=== PATIENT | female | born 1980 | race Caucasian/White ===

== ENCOUNTER 2019-01-30 11:37 | Emergency (ER) | payer MEDICARE, OTHER ==
[~2019-01-30] VITALS: Ht 152.4 cm; Wt 69.9 kg
--- OUTSIDE RECORDS SUMMARY | 2019-01-30 11:40 | XMS REPORT | Clinical Summary ---
Author Author [facility] Organization [place] [facility] Address Unknown Phone Unavailable Care Team Providers Care Statistical Developer Name Role Phone System, Provider Not In MD PCP Unavailable Allergies No Known Allergies Medications End Date Status Medication Sig Dispensed Refills Start Date Active lisinopril-hydrochlorothi Take 1 tablet 0 azide by mouth (PRINZIDE,ZESTORETIC) daily. 10-12.5 mg per tablet Active diclofenac submicronized Take 35 mg by 0 (ZORVOLEX) 35 mg capsule mouth 3 (three) times a day as needed. Active tiZANidine (ZANAFLEX) 4 Take 4 mg by 0 MG tablet mouth nightly. 09/13/2018 Discontinued acetaminophen-codeine Take 1 tablet 0 (TYLENOL WITH CODEINE #3) by mouth 300-30 mg per tablet every 6 (six) hours as needed for moderate pain. 10/13/2018 meloxicam (MOBIC) 15 mg Take 1 tablet 20 tablet 0 tablet (15 mg total) 9 by mouth daily as needed for mild pain or moderate pain for up to 30 days. 10/13/2018 methocarbamol (ROBAXIN) Take 1 tablet 20 tablet 0 500 MG tablet (500 mg 9 total) by mouth every 8 (eight) hours as needed for muscle spasms for up to 30 days. 09/16/2018 acetaminophen-codeine Take 1 tablet 10 tablet 0 (TYLENOL WITH CODEINE #3) by mouth 9 300-30 mg per tablet every 8 (eight) hours as needed for moderate pain for up to 3 days. Active Problems Not on file Encounters Care Team Description Date Type Specialty Supa Seaman MD RUQ abdominal pain (Primary Dx); Dehydration; Rib pain on right side 09/13/2018 Emergency Emergency Medicine after 01/29/2018 Social History Date Tobacco Use Types Packs/Day Years Used Current Every Day Smoker Cigarettes Smokeless Tobacco: Never Used Drinks/Week oz/Week Comments Alcohol Use ocass Yes Sex Assigned at Date Recorded Not on file Industry Job Start Date Occupation Not on file Not on file Not on file Travel End Travel History Travel Start No recent travel history available. Last Filed Vital Signs Reading Time Taken Comments Vital Sign 132/78 09/13/2018 2:43 PM CDT Blood Pressure 78 09/13/2018 2:43 PM CDT Pulse 36.8 C (98.2 F) 09/13/2018 2:43 PM CDT Temperature 18 09/13/2018 2:43 PM CDT Respiratory Rate 100% 09/13/2018 2:43 PM CDT Oxygen Saturation - - Inhaled Oxygen Concentration 67.6 kg (149 lb) 09/13/2018 9:45 AM CDT Weight 152.4 cm (5') 09/13/2018 9:45 AM CDT Height 29.1 09/13/2018 9:45 AM CDT Body Mass Index Plan of Treatment Health Maintenance Due Date Last Done Comments CERVICAL CANCER SCREENING 2002 INFLUENZA VACCINE 01/04/2019 Procedures Comments Procedure Name Priority Date/Time Associated Diagnosis XR RIBS 2 VW RIGHT STAT 09/13/2018 1:20 PM CDT XR CHEST 2 VW STAT 09/13/2018 1:20 PM CDT ESTIMATED GFR STAT 09/13/2018 11:59 AM CDT LIPASE LEVEL STAT 09/13/2018 11:59 AM CDT COMPREHENSIVE METABOLIC STAT 09/13/2018 PANEL 11:59 AM CDT HC COMPLETE BLD COUNT STAT 09/13/2018 W/AUTO DIFF 11:59 AM CDT US GALLBLADDER STAT 09/13/2018 11:44 AM CDT HCG QUALITATIVE, URINE STAT 09/13/2018 SCREEN 10:42 AM CDT URINALYSIS SCREEN AND STAT 09/13/2018 MICROSCOPY, WITH REFLEX 10:42 AM CDT TO CULTURE ECG 12-LEAD STAT 09/13/2018 10:36 AM CDT ECG ED PRELIMINARY Routine 09/13/2018 INTERPRETATION 10:36 AM CDT after 01/29/2018 Results * XR Ribs 2 Vw Right (09/13/2018 1:20 PM CDT) Specimen Narrative Performed At EXAMINATION:XR RIBS 2 VW RIGHT [facility] CLINICAL HISTORY:R rib pain TECHNIQUE: COMPARISON:None. FINDINGS: Multiple views of the right ribs are submitted. There is no acute fracture or subluxation. There are no osseous lesions present. There is no evidence of a pneumothorax. IMPRESSION: 1. There is no acute fracture or dislocation to right ribs. 2. There is no evidence of a pneumothorax. [id number] Procedure Note Interface, Radiology Results Incoming - 09/13/2018 1:25 PM CDT EXAMINATION: XR RIBS 2 VW RIGHT CLINICAL HISTORY: R rib pain TECHNIQUE: COMPARISON: None. FINDINGS: Multiple views of the right ribs are submitted. There is no acute fracture or subluxation. There are no osseous lesions present. There is no evidence of a pneumothorax. IMPRESSION: 1. There is no acute fracture or dislocation to right ribs. 2. There is no evidence of a pneumothorax. [id number] Performing Organization Address City/State/Zipcode Phone Number [facility] [address] [place] [address] * XR Chest 2 Vw (09/13/2018 1:20 PM CDT) Specimen Narrative Performed At EXAMINATION:XR CHEST 2 VW [facility] CLINICAL HISTORY:R rib pain XR CHEST 2 VWimages are submitted COMPARISON:NONE FINDINGS: Lines/tubes:None. Heart and mediastinum:Unremarkable Lungs:The lungs are well inflated and clear. There is no evidence of pneumonia or pulmonary edema. Pleura:There is no pleural effusion or pneumothorax. Bones:Status post ACDF. Negative for acute osseous abnormality. IMPRESSION: Negative for acute cardiopulmonary disease. [id number] Procedure Note Interface, Radiology Results Incoming - 09/13/2018 1:25 PM CDT EXAMINATION: XR CHEST 2 VW CLINICAL HISTORY: R rib pain XR CHEST 2 VW images are submitted COMPARISON: NONE FINDINGS: Lines/tubes: None. Heart and mediastinum: Unremarkable Lungs: The lungs are well inflated and clear. There is no evidence of pneumonia or pulmonary edema. Pleura: There is no pleural effusion or pneumothorax. Bones: Status post ACDF. Negative for acute osseous abnormality. IMPRESSION: Negative for acute cardiopulmonary disease. [id number] Performing Organization Address City/State/Zipcode Phone Number [facility] [address] [place] [address] * Estimated GFR (09/13/2018 11:59 AM CDT) Estimated GFR >=90 mL/min/1.73 m2 [facility] Comment: [facility] rpretation G1 >=90 Normal or high G2 60-89Mildly decreased [id number] Mildly to moderately decreased [id number] Moderately to severely decreased G4 15-29Severely decreased G5 <15Kidney failure The eGFR was calculated using the Chronic Kidney Disease Epidemiology Collaboration (CKD-EPI) equation. Interpretation is based on recommendations of the National Kidney Foundation-Kidney Disease Outcomes Quality Initiative (NKF-KDOQI) published in 2014. Specimen Plasma specimen Performing Organization Address City/[facility]/Zipcode [place] [address] [place] [address] PATHOLOGY AND GENOMIC MEDICINE [facility] [id number] [place] [address] [place] [address] [facility] * CBC with platelet and differential (09/13/2018 11:59 AM CDT) [facility] WBC 11.65 (H) 4.50 - 11.00 k/uL [facility] RBC 5.08 4.20 - 5.50 m/uL [facility] HGB 15.1 12.0 - 16.0 g/dL [facility] HCT 45.6 37.0 - 47.0 % [facility] MCV 89.8 82.0 - 100.0 fL [facility] MCH 29.7 27.0 - 34.0 pg [facility] MCHC 33.1 31.0 - 37.0 g/dL [facility] RDW - SD 42.9 37.0 - 55.0 fL [facility] MPV 9.9 8.8 - 13.2 fL [facility] Platelet count 348 150 - 400 k/uL [facility] Nucleated RBC 0.00 /100 WBC [facility] Neutrophils 61.6 39.0 - 69.0 % [facility] Lymphocytes 27.6 25.0 - 45.0 % [facility] Monocytes 8.2 0.0 - 10.0 % [facility] Eosinophils 1.5 0.0 - 5.0 % [facility] Basophils 0.8 0.0 - 1.0 % [facility] Specimen Blood Performing Organization Address [facility] Phone Number [address] [place] [address] PATHOLOGY AND GENOMIC MEDICINE [address] * Lipase level (09/13/2018 11:59 AM CDT) [facility] Lipase 29 13 - 60 U/L [facility] Specimen Plasma specimen Performing Organization Address [facility] Phone Number [address] [place] [address] PATHOLOGY AND GENOMIC MEDICINE [address] * Comprehensive metabolic panel (09/13/2018 11:59 AM CDT) [facility] Sodium 140 135 - 148 mEq/L [facility] Potassium 4.0 3.5 - 5.0 mEq/L [facility] Chloride 103 98 - 112 mEq/L [facility] CO2 28 24 - 31 mEq/L [facility] Anion gap 9@ANIO 7 - 15 mEq/L [facility] BUN 19 6 - 20 mg/dL [facility] Creatinine 0.70 0.50 - 0.90 mg/dL [facility] Glucose 96 65 - 99 mg/dL [facility] Calcium 10.0 8.3 - 10.2 mg/dL [facility] Protein 8.4 (H) 6.3 - 8.3 g/dL [facility] Comment: [facility] 4.6-7.0 g/dL 1 week 4.4-7.6 g/dL 7 months-1year 5.1-7.3 g/dL 1-2 years5.6-7 .5 g/dL >3 years6.0-8 .0 g/dL 18-150 6.3-8.3 g/dL Albumin 4.8 3.5 - 5.0 g/dL [facility] A/G ratio 1.3 0.7 - 3.8 [facility] Alkaline 100 35 - 104 U/L [facility] phosphatase [facility] AST 15 10 - 35 U/L [facility] ALT 14 5 - 50 U/L [facility] Total bilirubin 0.3 0.0 - 1.2 mg/dL [facility] Specimen Plasma specimen Performing Organization Address [facility] Phone Number [facility] DEPARTMENT OF [address] [place] [address] [place] [phone] PATHOLOGY AND GENOMIC MEDICINE [address] [place] [phone] [facility] * US Gallbladder (09/13/2018 11:44 AM CDT) Specimen Narrative Performed At Gallbladder ultrasound, 09/13/2018 11:45 AM [facility] Clinical history: Right upper quadrant pain Comparison: None Technique: Grayscale and color Doppler ultrasound Findings: Gallbladder: Partially contracted; no conspicuous stones or sludge. Wall thickness: 0.2 cm. Common bile duct diameter: 0.3 cm. Image portions of the liver are unremarkable. Impression: No acute abnormality Procedure Note Interface, Radiology Results Incoming - 09/13/2018 11:49 AM CDT Gallbladder ultrasound, 09/13/2018 11:45 AM Clinical history: Right upper quadrant pain Comparison: None Technique: Grayscale and color Doppler ultrasound Findings: Gallbladder: Partially contracted; no conspicuous stones or sludge. Wall thickness: 0.2 cm. Common bile duct diameter: 0.3 cm. Image portions of the liver are unremarkable. Impression: No acute abnormality Performing Organization Address City/[facility]/Zipcode Phone Number [facility] [address] [place] [address] * Urinalysis screen and microscopy, with reflex to culture (09/13/2018 10:42 AM CDT) Specimen site Clean catch [facility] Color, UA Yellow [facility] Appearance, UA Clear [facility] Specific 1.017 1.001 - 1.035 [facility] gravity, UA [facility] pH, UA 6.0 5.0 - 8.5 [facility] Protein, UA Negative Negative [facility] Glucose, UA Negative Negative [facility] Ketones, UA Negative Negative [facility] Bilirubin, UA Negative Negative [facility] Blood, UA Small (A) Negative [facility] Nitrite, UA Negative Negative [facility] Urobilinogen, Negative <2.0 [facility] Leukocyte Negative Negative [facility] esterase, UA [facility] Epithelial Many /HPF [facility] cells, UA [facility] Round Few 0 - 1 /HPF [facility] epithelial [facility]. cells, [facility] WBC, UA 0-5 0 - 4 /HPF [facility] RBC, UA 0-5 0 - 5 /HPF [facility] Bacteria, UA Trace None seen [facility] Yeast, UA None seen [facility] Yeast with None seen [facility] Specimen Urine Performing Organization Address [facility] Phone Number [address] [place] [address] PATHOLOGY AND GENOMIC MEDICINE [address] * hCG qualitative, urine screen (09/13/2018 10:42 AM CDT) Pathologist [facility] hCG Negative Negative [facility] qualitative, Comment: [facility] urine The manufacturers stated [facility] sensitivity of HcG test for serum is >/=10 mIU/ml and urine is >/=20mIU/ml. Specimen Urine Performing Organization Address [facility] Phone Number [address] [place] [address] PATHOLOGY AND GENOMIC MEDICINE [address] * ECG 12 lead (09/13/2018 10:36 AM CDT) Ventricular 63 [facility] rate Atrial rate 63 [facility] OR interval 132 [facility] QRSD interval 82 [facility] QT interval 396 [facility] QTC interval 405 [facility] P axis 1 39 [facility] QRS axis 1 50 [facility] T wave axis 34 [facility] EKG impression Sinus rhythm with marked sinus [facility] arrhythmia-Otherwise normal ECG-No previous ECGs available- Specimen Narrative Performed At Performing Organization Address City/State/Zipcode Phone Number [facility] [address] [place] [address] * ECG ED Preliminary Interpretation - Not an Order (09/13/2018 10:36 AM CDT) Narrative Performed At Supa Seaman MD 09/13/20186:44 PM ECG ED Preliminary Interpretation - Not an Order Performed by: Supa Seaman MD Authorized by: Supa Seaman MD ECG reviewed by ED Physician in the absence of a assistant wrestling coach: yes Interpretation: Interpretation: normal Rate: ECG rate:63 ECG rate assessment: normal Rhythm: Rhythm: sinus rhythm Ectopy: Ectopy: none QRS: QRS axis:Normal QRS intervals:Normal Conduction: Conduction: normal ST segments: ST segments:Normal T waves: T waves: inverted Inverted:III, aVR and V1 after 01/29/2018 Insurance Type Payer Benefit Subscriber ID Effective Phone Address Plan / Dates Group PPO HUMANA HUMANA xxxxxxxxx 2018- CHOICE Present CARE PPO Advance Directives For more information, please contact: [phone] Patient Grants Officer Explanation Type Date Recorded Advance Directives, 09/13/2018 11:05 AM Living Will and Medical Power of [employer] Computer Data Processor
--- OUTSIDE RECORDS SUMMARY | 2019-01-30 11:40 | XMS REPORT ---
Author [facility] Address Unknown Phone Unavailable Care Team Providers Care Chicken Tender Name Role Phone Unavailable Unavailable Payers Payer Name Policy Type Policy Number Effective Date Expiration Date Problems This patient has no known problems. Allergies, Adverse Reactions, Alerts Allergy Name Allergy Type Status Severity Reaction(s) Onset Date Inactive Date Treating Clinician Comments No Known Allergies DA Active U 2018-06-10 00:00:00 No Known Contrast Allergies DA Active U 2006-08-19 00:00:00 No Known Drug Allergies DA Active U 2006-08-19 00:00:00 No Known Food Allergies DA Active U 2006-08-19 00:00:00 No Known Other Allergies DA Active U 2006-08-19 00:00:00 Medications This patient has no known medications.
--- OUTSIDE RECORDS SUMMARY | 2019-01-30 11:40 | XMS REPORT | Continuity of Care Document ---
Author Author [employer] Organization [employer] Address Unknown Phone Unavailable Care Team Providers Care Media Promoter Name Role Phone [employer] Unavailable Unavailable Problems Problem Status Onset Date Classification Date Reported Comments Source Right lower quadrant pain 06/08/2018 12/26/[address] [facility] LOWER ABD PAIN Active 06/08/[address] [facility] Nausea 12/26/[address] [facility] Diarrhea, unspecified 12/26/[address] [facility] Medications Medication Details Route Status Patient Instructions Ordering Provider Order Date Source Cyclobenzaprine hydrochloride 10 MG Oral Tablet [Flexeril] 10 mg, PO, TID, PRN Muscle Spasm, X 5 day, # 15 tab, 0 Refill(s) No Longer Active 06/08/[address] [facility] ibuprofen 800 mg oral tablet 800 mg=1 tab, PO, Q8H, PRN Pain, Take with food, X 5 day, # 15 tab, 0 Refill(s) No Longer Active 06/08/[address] [facility] ketOROLAC 30 mg/mL injectable solution 30 mg, Route: IVP, Drug form: INJ, ONCE, Dosing Weight 68.182, kg, Priority: STAT, Start date: 06/08/18 12:15:00 PLASTER MACHINE TENDER, Stop date: 06/08/18 12:15:00 PLASTER MACHINE TENDER Inactive 06/08/[address] [facility] Sodium Chloride 0.9% (Bolus) IV 1,000 mL, Infuse Over: 1 hr, Route: IV, ONCE, Priority: STAT, Dosing Weight 68.182 kg, Start date: 06/08/18 9:28:00 PLASTER MACHINE TENDER, Stop date: 06/08/18 9:28:00 PLASTER MACHINE TENDER Inactive 06/08/[address] [facility] Ondansetron 4 mg, Route: IVP, Drug form: INJ, ONCE, Dosing Weight 68.182, kg, Priority: STAT, Start date: 06/08/18 9:28:00 PLASTER MACHINE TENDER, Stop date: 06/08/18 9:28:00 PLASTER MACHINE TENDER Inactive 06/08/[address] [facility] Morphine 4 mg, Route: IVP, ONCE, Dosing Weight 68.182, kg, Priority: STAT, Start date: 06/08/18 9:28:00 PLASTER MACHINE TENDER, Stop date: 06/08/18 9:28:00 PLASTER MACHINE TENDER Inactive 06/08/[address] [facility] Allergies, Adverse Reactions, Alerts Substance Category Reaction Severity Reaction type Status Date Reported Comments Source No Known Medication Allergies Assertion Drug allergy [facility] Immunizations No Data Provided for This Section Results Order Name Results Value Reference Range Date Interpretation Comments Source ELECTROLYTES AGAP 12.6 10.0 - 20.0 06/08/[address] [facility] ELECTROLYTES B/C Ratio 19 6 - 25 06/08/[address] [facility] ELECTROLYTES Globulin 3.9 2.7 - 4.2 06/08/[address] [facility] ELECTROLYTES A/G Ratio 0.8 0.7 - 1.6 06/08/[address] [facility] ELECTROLYTES Calcium Lvl 8.9 8.5 - 10.5 06/08/[address] [facility] ELECTROLYTES BUN 13 7 - 22 06/08/[address] [facility] ELECTROLYTES CO2 23 24 - 32 06/08/[address] [facility] ELECTROLYTES Albumin Lvl 3.2 3.5 - 5.0 06/08/[address] [facility] ELECTROLYTES Glucose Lvl 91 70 - 99 06/08/[address] [facility] ELECTROLYTES eGFR 112 06/08/2018 Result Comment: The eGFR is calculated using the CKD-EPI formula. In most young, healthy individuals the eGFR will be >90 mL/min/1.73m2. The eGFR declines with age. An eGFR of 60-89 may be normal in some populations, particularly the elderly, for whom the CKD-EPI formula has not been extensively validated. Use of the eGFR is not recommended in the following populations:

Individuals with unstable creatinine concentrations, including patients and those with serious co-morbid conditions.

Patients with extremes in muscle mass or diet.

The data above are obtained from the National Kidney Disease Education Program (NKDEP) which additionally recommends that when the eGFR is used in patients with extremes of body mass index for purposes of drug dosing, the eGFR should be multiplied by the estimated BMI. [facility] ELECTROLYTES AST 9 0 - 37 06/08/[address] [facility] ELECTROLYTES Creatinine Lvl 0.70 0.50 - 1.40 06/08/[address] [facility] ELECTROLYTES ALT 21 0 - 65 06/08/[address] [facility] ELECTROLYTES Sodium Lvl 141 135 - 145 06/08/[address] [facility] ELECTROLYTES Chloride Lvl 109 95 - 109 06/08/[address] [facility] ELECTROLYTES Potassium Lvl 3.6 3.5 - 5.1 06/08/[address] [facility] ELECTROLYTES Bili Total 0.2 0.2 - 1.3 06/08/[address] [facility] ELECTROLYTES Total Protein 7.1 6.4 - 8.4 06/08/[address] [facility] ELECTROLYTES Alk Phos 95 39 - 136 06/08/[address] [facility] HEMATOLOGY WBC 10.6 3.7 - 10.4 06/08/[address] [facility] HEMATOLOGY RBC 4.50 4.20 - 5.40 06/08/[address] [facility] HEMATOLOGY MCH 31.4 27.0 - 31.0 06/08/[address] [facility] HEMATOLOGY Hgb 14.2 12.0 - 16.0 06/08/[address] [facility] HEMATOLOGY RDW 12.8 11.5 - 14.5 06/08/[address] [facility] HEMATOLOGY Platelet 309 133 - 450 06/08/[address] [facility] HEMATOLOGY MPV 8.1 7.4 - 10.4 06/08/[address] [facility] HEMATOLOGY MCHC 35.7 32.0 - 36.0 06/08/[address] [facility] HEMATOLOGY MCV 88.2 80.0 - 98.0 06/08/[address] [facility] HEMATOLOGY Hct 39.7 36.0 - 48.0 06/08/[address] [facility] HEMATOLOGY Eosinophils 6.4 0.0 - 4.0 06/08/[address] [facility] HEMATOLOGY Monocytes 7.0 2.0 - 12.0 06/08/[address] [facility] HEMATOLOGY Basophils 0.6 0.0 - 1.0 06/08/[address] [facility] HEMATOLOGY Neutrophils # 5.9 1.5 - 8.1 06/08/[address] [facility] HEMATOLOGY Eosinophils # 0.7 0.0 - 0.5 06/08/[address] [facility] HEMATOLOGY Lymphocytes # 3.2 1.0 - 5.5 06/08/[address] [facility] HEMATOLOGY Monocytes # 0.7 0.0 - 0.8 06/08/[address] [facility] HEMATOLOGY Segs 55.6 45.0 - 75.0 06/08/[address] [facility] HEMATOLOGY Lymphocytes 30.4 20.0 - 40.0 06/08/[address] [facility] HEMATOLOGY Basophils # 0.1 0.0 - 0.2 06/08/[address] [facility] URINE AND STOOL UA WBC <1 0 - 5 06/08/[address] [facility] URINE AND STOOL UA RBC 1 0 - 2 06/08/[address] [facility] URINE AND STOOL UA Ketones Negative 06/08/[address] [facility] URINE AND STOOL UA Glucose Negative *NA* (06/08/18 9:42 AM) Negative 06/08/[address] [facility] URINE AND STOOL UA Bili Negative *NA* (06/08/18 9:42 AM) Negative 06/08/[address] [facility] URINE AND STOOL UA Urobilinogen <=1.0 mg/dL 0.1 - 1.0 06/08/[address] [facility] URINE AND STOOL UA Blood Small *ABN* (06/08/18 9:42 AM) Negative 06/08/[address] [facility] URINE AND STOOL UA Nitrite Negative (06/08/18 9:42 AM) Negative 06/08/[address] [facility] URINE AND STOOL UA Leuk Est Negative (06/08/18 9:42 AM) Negative 06/08/[address] [facility] URINE AND STOOL UA Sq Epi Moderate /LPF Few /LPF 06/08/[address] [facility] URINE AND STOOL UA Turbidity Clear (06/08/18 9:42 AM) Clear 06/08/[address] [facility] URINE AND STOOL UA Color Light Yellow *NA* (06/08/18 9:42 AM) Yellow 06/08/[address] [facility] URINE AND STOOL UA Protein Negative (06/08/18 9:42 AM) Negative 06/08/[address] [facility] URINE AND STOOL UA pH 7.0 5.0 - 8.0 06/08/[address] [facility] URINE AND STOOL UA Spec Grav 1.016 <=1.030 06/08/[address] [facility] URINE CHEM U Preg Negative (06/08/18 9:42 AM) Negative 06/08/[address] [facility] Pathology Reports No Data Provided for This Section Diagnostic Reports Report Value Date Source Pelvis w Transvag and Pelvis Doppler US STUDY: Pelvis w Transvag and Pelvis Doppler US COMPARISON: None. HISTORY: - RLQ pain. FINDINGS: Transvaginal and transabdominal ultrasound images of the pelvis were obtained. Uterus: Anteverted and measures 9 x 4 x 4 cm. No uterine fibroids are seen. Endometrial cavity: Empty. Endometrial stripe: Measures 6.0m which is within normal limits. Right adnexa: Ovary measures 2.0 x 1.6 x 1.6 cm. Contains physiologic follicles. Normal vascularity is seen. Left adnexa: Ovary measures 3.9 x 2.2 x 2.2 cm. Contains a simple cyst measuring 1.9 cm and 2.0 cm cyst with a small daughter cyst, likely functional cysts No follow-up imaging is recommended per SRU guidelines. Normal vascularity is seen. Pelvic fluid: None. Cervix: Unremarkable. IMPRESSION: Unremarkable pelvic ultrasound. 06/08/[address] [facility] ED Abdomen/Pelvis IV contrast only CT EXAM: CT ABDOMEN AND PELVIS WITH CONTRAST DATE: 06/08/2018 9:28 PLASTER MACHINE TENDER INDICATION: - RLQ pain, diarrhea ADDITIONAL INFORMATION: None. COMPARISON: None. TECHNIQUE: Volumetric CT acquisition of the abdomen and pelvis after the intravenous administration contrast. Axial, coronal and sagittal reconstructions. Postcontrast phases: Venous IV contrast: 95 mL Omnipaque Oral contrast: None CT Radiation Dose DLP 708 mGy-cm AEC, mA/kV adjustment by patient size, and/or iterative reconstruction technique were used, per departmental dose-optimization program. FINDINGS: Lines and tubes: None. Lower thorax: Mild atelectatic changes Liver and biliary tree: Focal fatty infiltration along the falciform ligament Gallbladder: Normal. No CT evidence of gallstones. Pancreas: Normal. Spleen: Normal. Adrenals: Normal. Kidneys and ureters: Normal. No hydronephrosis. Bladder: Normal. Reproductive organs: Unremarkable by CT appearance with dominant follicles versus small cysts in the left ovary. Gastrointestinal tract: Unremarkable with normal caliber. Appendix: Normal. Peritoneum and retroperitoneum: Trace free fluid in the pelvis, likely physiologic. No free air. Lymph nodes: No pathologic adenopathy. Vasculature: Unremarkable. Bones: No acute abnormality. Soft tissues: Unremarkable. IMPRESSION: 1. No acute abnormality. 2. Unremarkable CT appearance of the ovaries. If pelvic pathology is suspected, pelvic ultrasound is recommended. 06/08/[address] [facility] Consultation Notes No Data Provided for This Section Discharge Summaries No Data Provided for This Section History and Physicals No Data Provided for This Section Vital Signs Vital Sign Value Date Comments Source Respitory Rate 16 06/08/[address] [facility] Systolic (mm Hg) 114 06/08/[address] [facility] Diastolic (mm Hg) 70 06/08/[address] [facility] Heart Rate 87 06/08/[address] [facility] Systolic (mm Hg) 121 06/08/[address] [facility] Diastolic (mm Hg) 70 06/08/[address] [facility] Heart Rate 83 06/08/[address] [facility] Respitory Rate 16 06/08/[address] [facility] Weight 68.182 06/08/[address] [facility] BMI Calculated 22.2 06/08/[address] [facility] Temperature Oral (F) 97.7 F 06/08/[address] [facility] Height 175.26 cm 06/08/[address] [facility] Respitory Rate 18 06/08/[address] [facility] Heart Rate 79 06/08/[address] [facility] Systolic (mm Hg) 119 06/08/[address] [facility] Diastolic (mm Hg) 84 06/08/[address] [facility] Encounters Location Location Details Encounter Type Encounter Number Reason For Visit Attending Provider ADM Date DC Date Status Source [facility] Emergency [id number] Ebelechukwu Yungiari 06/08/2018 06/08/[address] [facility] Outpatient [id number] GALEN APPIAH 07/18/2018 [facility] Outpatient [id number] GALEN APPIAH 08/08/2018 [facility] Procedures Procedure Code Date Perfomer Comments Source Cervical spinal fusion by anterior technique<sup>1</sup> [id number] Feb [address] [facility] Assessment and Plan No Data Provided for This Section Plan of Care No Data Provided for This Section Social History Social History Date Source Social History TypeResponse Sexual Sexually active: Yes. Exercise Exercise duration: 0. Employment/School Status: Employed. Alcohol Current, Type Wine, Liquor. Previous treatment: None. Smoking Status Current every day smoker; Type: Cigarettes; Previous treatment: None; Ready to change: No; Concerns about tobacco use in household: No; Exposure to Tobacco Smoke None; Cigarette Smoking Last 365 Days Yes; Reg Smoking Cessation Counseling No entered on: 08/08/18 07/18/[address] [facility] Family History No Data Provided for This Section Advance Directives No Data Provided for This Section Functional Status No Data Provided for This Section
--- OUTSIDE RECORDS SUMMARY | 2019-01-30 11:40 | XMS REPORT | Summary of Care ---
Author Author [facility] Organization [facility] Address Unknown Phone Unavailable Encounter GEORGINA Oneill(GLADYS) [id number] Date(s): 06/08/18 - 06/08/18 [id number] [place] [address]- Encounter Diagnosis RLQ abdominal pain (Discharge Diagnosis) - 06/08/18 Right lower quadrant pain (Final) - 06/15/18 Nausea (Final) - Diarrhea, unspecified (Final) - Discharge Disposition: Home or Self Care Attending Physician: Edna Goff MD Vital Signs 1 2 3 Most recent to oldest [Reference Range]: 175.26 cm (06/08/18 8:47 AM) Height 97.7 DegF (06/08/18 8:47 AM) Temperature Oral [96.4-99.1 DegF] 114/70 mmHg (06/08/18 12:47 PM) 121/70 mmHg (06/08/18 10:47 AM) 119/84 mmHg (06/08/18 8:47 AM) Blood Pressure [90-140/60-90 mmHg] 16 BRMIN (06/08/18 12:47 PM) 16 BRMIN (06/08/18 10:47 AM) 18 BRMIN (06/08/18 8:47 AM) Respiratory Rate [14-20 BRMIN] 87 bpm (06/08/18 12:47 PM) 83 bpm (06/08/18 10:47 AM) 79 bpm (06/08/18 8:47 AM) Peripheral Pulse Rate [60-100 bpm] 68.182 kg (06/08/18 8:47 AM) Weight 22.2 m2 (06/08/18 8:47 AM) Body Mass Index Problem List No data available for this section Allergies, Adverse Reactions, Alerts No Known Medication Allergies Medications Flexeril 10 mg oral tablet 10 mg, PO, TID, PRN Muscle Spasm, X 5 day, # 15 tab, 0 Refill(s) Start Date: 06/08/18 Stop Date: 06/13/18 Status: Completed ibuprofen 800 mg oral tablet 800 mg=1 tab, PO, Q8H, PRN Pain, Take with food, X 5 day, # 15 tab, 0 Refill(s) Start Date: 06/08/18 Stop Date: 06/13/18 Status: Completed ketOROLAC 30 mg/mL injectable solution 30 mg, Route: IVP, Drug form: INJ, ONCE, Dosing Weight 68.182, kg, Priority: STA T, Start date: 06/08/18 12:15:00 SQL SSRS SSIS DEVELOPER, Stop date: 06/08/18 12:15:00 SQL SSRS SSIS DEVELOPER Start Date: 06/08/18 Stop Date: 06/08/18 Status: Completed morphine Sulfate 4 mg, Route: IVP, ONCE, Dosing Weight 68.182, kg, Priority: STAT, Start date: 9:28:00 SQL SSRS SSIS DEVELOPER, Stop date: 06/08/18 9:28:00 SQL SSRS SSIS DEVELOPER Start Date: 06/08/18 Stop Date: 06/08/18 Status: Completed ondansetron 4 mg, Route: IVP, Drug form: INJ, ONCE, Dosing Weight 68.182, kg, Priority: STAT , Start date: 06/08/18 9:28:00 SQL SSRS SSIS DEVELOPER, Stop date: 06/08/18 9:28:00 SQL SSRS SSIS DEVELOPER Start Date: 06/08/18 Stop Date: 06/08/18 Status: Completed Sodium Chloride 0.9% (Bolus) IV 1,000 mL, Infuse Over: 1 hr, Route: IV, ONCE, Priority: STAT, Dosing Weight 68.1 82 kg, Start date: 06/08/18 9:28:00 SQL SSRS SSIS DEVELOPER, Stop date: 06/08/18 9:28:00 SQL SSRS SSIS DEVELOPER Start Date: 06/08/18 Stop Date: 06/08/18 Status: Completed Results Most recent to 1 oldest [Reference Range]: Neutrophils # 5.9 K/CMM [1.5-8.1 K/CMM] (06/08/18 9:42 AM) Lymphocytes # 3.2 K/CMM [1.0-5.5 K/CMM] (06/08/18 9:42 AM) Monocytes # [0.0-0.8 0.7 K/CMM K/CMM] (06/08/18 9:42 AM) Eosinophils # 0.7 K/CMM [0.0-0.5 K/CMM] *HI* (06/08/18 9:42 AM) Basophils # [0.0-0.2 0.1 K/CMM K/CMM] (06/08/18 9:42 AM) eGFR 112 mL/min/1.73m2 1 *NA* (06/08/18 9:42 AM) A/G Ratio [0.7-1.6] 0.8 (06/08/18 9:42 AM) Albumin Lvl [3.5-5.0 3.2 g/dL g/dL] *LOW* (06/08/18 9:42 AM) Alk Phos [39-136 95 unit/L unit/L] (06/08/18 9:42 AM) ALT [0-65 unit/L] 21 unit/L (06/08/18 9:42 AM) AGAP [10.0-20.0 12.6 mEq/L mEq/L] (06/08/18 9:42 AM) AST [0-37 unit/L] 9 unit/L (06/08/18 9:42 AM) B/C Ratio [6-25] 19 (06/08/18 9:42 AM) Basophils [0.0-1.0 0.6 % %] (06/08/18 9:42 AM) BUN [7-22 mg/dL] 13 mg/dL (06/08/18 9:42 AM) Calcium Lvl 8.9 mg/dL [8.5-10.5 mg/dL] (06/08/18 9:42 AM) Chloride Lvl [95-109 109 mEq/L mEq/L] (06/08/18 9:42 AM) CO2 [24-32 mEq/L] 23 mEq/L *LOW* (06/08/18 9:42 AM) Creatinine Lvl 0.70 mg/dL [0.50-1.40 mg/dL] (06/08/18 9:42 AM) Eosinophils [0.0-4.0 6.4 % %] *HI* (06/08/18 9:42 AM) Globulin [2.7-4.2 3.9 g/dL g/dL] (06/08/18 9:42 AM) Glucose Lvl [70-99 91 mg/dL mg/dL] (06/08/18 9:42 AM) Hct [36.0-48.0 %] 39.7 % (06/08/18 9:42 AM) Hgb [12.0-16.0 g/dL] 14.2 g/dL (06/08/18 9:42 AM) Potassium Lvl 3.6 mEq/L [3.5-5.1 mEq/L] (06/08/18 9:42 AM) Lymphocytes 30.4 % [20.0-40.0 %] (06/08/18 9:42 AM) MCH [27.0-31.0 pg] 31.4 pg *HI* (06/08/18 9:42 AM) MCHC [32.0-36.0 35.7 g/dL g/dL] (06/08/18 9:42 AM) MCV [80.0-98.0 fL] 88.2 fL (06/08/18 9:42 AM) Monocytes [2.0-12.0 7.0 % %] (06/08/18 9:42 AM) MPV [7.4-10.4 fL] 8.1 fL (06/08/18 9:42 AM) Sodium Lvl [135-145 141 mEq/L mEq/L] (06/08/18 9:42 AM) Platelet [133-450 309 K/CMM K/CMM] (06/08/18 9:42 AM) Segs [45.0-75.0 %] 55.6 % (06/08/18 9:42 AM) Total Protein 7.1 g/dL [6.4-8.4 g/dL] (06/08/18 9:42 AM) RBC [4.20-5.40 4.50 M/CMM M/CMM] (06/08/18 9:42 AM) RDW [11.5-14.5 %] 12.8 % (06/08/18 9:42 AM) Bili Total [0.2-1.3 0.2 mg/dL mg/dL] (06/08/18 9:42 AM) UA Bili [Negative] Negative *NA* (06/08/18 9:42 AM) UA Blood [Negative] Small *ABN* (06/08/18 9:42 AM) UA Color [Yellow] Light Yellow *NA* (06/08/18 9:42 AM) UA Glucose Negative [Negative] *NA* (06/08/18 9:42 AM) UA Ketones Negative *NA* (06/08/18 9:42 AM) UA Leuk Est Negative [Negative] (06/08/18 9:42 AM) UA Nitrite Negative [Negative] (06/08/18 9:42 AM) UA pH [5.0-8.0] 7.0 (06/08/18 9:42 AM) U Preg [Negative] Negative (06/08/18 9:42 AM) UA Protein Negative [Negative] (06/08/18 9:42 AM) UA RBC [0-2 /HPF] 1 /HPF (06/08/18 9:42 AM) UA Spec Grav 1.016 [<=1.030] (06/08/18 9:42 AM) UA Sq Epi [Few /LPF] Moderate /LPF *ABN* (06/08/18 9:42 AM) UA Turbidity [Clear] Clear (06/08/18 9:42 AM) UA Urobilinogen <=1.0 mg/dL [0.1-1.0 mg/dL] *NA* (06/08/18 9:42 AM) UA WBC [0-5 /HPF] <1 /HPF (06/08/18 9:42 AM) WBC [3.7-10.4 K/CMM] 10.6 K/CMM *HI* (06/08/18 9:42 AM) 1Result Comment: The eGFR is calculated using the [...] from the National Kidney Disease Education Program ( NKDEP) which additionally recommends that when the eGFR is used in patients with extremes of body mass index for purposes of drug dosing, the eGFR should be mul tiplied by the estimated BMI. Immunizations No data available for this section Procedures Procedure Date Related Diagnosis Body Site Status Cervical spinal fusion by anterior technique1 Completed 1Sep 2015 Social History Social History Type Response Sexual Sexually active: Yes. Exercise Exercise duration: 0. Employment/School Status: Employed. Alcohol Current, Type Wine, Liquor. Previous treatment: None. Smoking Status Current every day smoker; Type: Cigarettes; Previous treatment: None; Ready to change: No; Concerns about tobacco use in household: No; Exposure to Tobacco Smoke None; Cigarette Smoking Last 365 Days Yes; Reg Smoking Cessation Counseling No entered on: 08/08/18 Assessment and Plan No data available for this section
== END 2019-01-30 12:15 | disposition home or self-care (01) ==
LOC: ER 11:37
DX: J01.00 Acute maxillary sinusitis, unspecified (principal)
CPT/HCPCS: 99282